=== PATIENT | male | born 1965 | race Caucasian/White ===

== ENCOUNTER 2016-10-27 10:48 | Emergency (ER) | payer BC ==
[~2016-10-27] VITALS: Ht 177.8 cm; Wt 85.0 kg
[~2016-10-27 10:48] MED LIST: NOHOMEMEDS
[2016-10-27 12:05] LABS: HEMATOCRIT 42.4 % (38.0-50.0); MCH 32.5 PG (29.0-34.0); MCHC 35.1 G/DL (30.0-36.0); MCV 92.4 FL (86-99); MEAN PLAT.VOLUME 9.5 uM^3 (9.0-12.4); PLATELET COUNT 217 K/uL (156-360); RBC DIS.WIDTH-CV 12.8 % (11.8-14.6); RBC DIS.WIDTH-SD 43.5 % (39-53); RED BLOOD COUNT 4.59 M/uL (4.00-5.50); WHITE BLOOD COUNT 5.8 K/uL (4.1-10.2)
[2016-10-27 12:21] LABS: CHLORIDE 105 mEq/L (99-109); POTASSIUM 4.5 mEq/L (3.7-5.4); SODIUM 137 mEq/L (136-147)
[2016-10-27 12:23] LABS: GLUCOSE 77 mg/dL (70-99)
[2016-10-27 12:24] LABS: ANION GAP 10 MEQ/L (2-14)
[2016-10-27 12:25] LABS: TROP-I INTERPRETATION NEGATIVE; TROPONIN-I < 0.01 ng/mL (0.0-0.30)
[2016-10-27 12:26] LABS: GFR ESTIMATE (CALCULATED) > 59 mL/min/
[2016-10-27 12:27] LABS: UREA NITROGEN (BUN) 14 mg/dL (9-23)
[2016-10-27 14:21] LABS: D-DIMER ELISA < 0.15 mg/L FEU (< 0.57)
[2016-10-27 16:50] LABS: TROP-I INTERPRETATION NEGATIVE; TROPONIN-I < 0.01 ng/mL (0.0-0.30)
[2016-10-27 17:02] VITALS: BP 137/79
== END 2016-10-27 17:05 | disposition home or self-care (01) ==
LOC: EME 10:48
PROVIDERS: Emergency Medicine
DX: R07.9 Chest pain, unspecified (principal); Z87.891 Personal history of nicotine dependence
CPT/HCPCS: 71020; 80048; 84484; 85027; 85379; 93005; 99281; 99284